=== PATIENT | female | born 1965 | race African-American/Black ===

== ENCOUNTER 2021-07-04 07:22 | Outpatient (CLI) | payer OTHER | END 2021-07-04 07:23 | disposition home or self-care (01) | LOC: CSHLAB 07:22 | PROVIDERS: ATTEND Obstetrics & Gynecology | DX: Z01.812 Encounter for preprocedural laboratory examination (principal); Z20.822 Contact with and (suspected) exposure to COVID-19; N95.0 Postmenopausal bleeding | CPT/HCPCS: 80048; 85027; 86850; 86900; 86901; U0003; U0005 ==